=== PATIENT | male | born 1975 | race Caucasian/White ===

== ENCOUNTER 2018-01-25 14:02 | Emergency (ER) | payer OTHER ==
--- NOTE | 2018-01-25 14:41 | ER Document Report ---
ED Medical Screen (RME) - General Chief Complaint: Leg Swelling Stated Complaint: LEG SWELLING Time Seen by Provider: 01/25/18 14:32 Notes: Patient is a 42-year-old male that presents to the emergency department for chief complaint of bilateral lower extremity edema, and some shortness of breath. Patient reports that his legs been more swollen over the last month, continue to get worse over that period of time, he is on his feet 6 days a week , and has not been putting his legs up, but they are concerned something else is going on.. ROS: Other than noted above, the 12 point review of systems was reviewed with the patient and were negative, all pertinent findings are included in the HPI. PHYSICAL EXAMINATION: Vital signs reviewed. GENERAL: Well-appearing, well-nourished and in no acute distress. HEAD: Atraumatic, normocephalic. EYES: Pupils equal round extraocular movements intact, conjunctiva are normal. ENT: Nares patent NECK: Normal range of motion CV: Heart regular rate and rhythm LUNGS: No respiratory distress Musculoskeletal: Normal range of motion, bilateral lower extremity pitting edema to the proximal tibias. No erythema. NEUROLOGICAL: Normal speech PSYCH: Normal mood, normal affect. MDM: Patient seen and examined for rapid initial assessment. Vital signs reviewed. A comprehensive ED assessment and evaluation of the patient, analysis of test results and completion of the medical decision making process will be conducted by additional ED providers. *Note is created using voice recognition software and may contain spelling, syntax or grammatical errors. TRAVEL OUTSIDE OF THE [place] IN LAST 30 DAYS: No Physical Exam - Vital signs Vitals: Temp Pulse Resp BP Pulse Ox 98.6 F 89 14 142/75 H 98 01/25/18 14:17 01/25/18 14:17 01/25/18 14:17 01/25/18 14:17 01/25/18 14:17 Course - Vital Signs Vital signs: Temp Pulse Resp BP Pulse Ox 98.6 F 89 14 142/75 H 98 01/25/18 14:17 01/25/18 14:17 01/25/18 14:17 01/25/18 14:17 01/25/18 14:17
[2018-01-25 15:05] LABS: ABSOLUTE BASOPHILS # (AUTO) 0.1 10^3/uL (0.0-0.2); ABSOLUTE EOSINOPHILS # (AUTO) 0.1 10^3/uL (0.0-0.6); ABSOLUTE LYMPHOCYTES (AUTO) 2.6 10^3/uL (0.5-4.7); ABSOLUTE MONOCYTES (AUTO) 0.6 10^3/uL (0.1-1.4); BASOPHILS % (AUTO) 0.8 % (0-2); EOSINOPHILS % (AUTO) 1.6 % (0-6); HEMATOCRIT 45.6 % (37.9-51.0); LYMPHOCYTES % (AUTO) 35.1 % (13-45); MEAN CORPUSCULAR HEMOGLOBIN 32.5 pg (27.0-33.4); MEAN CORPUSCULAR HGB CONC 35.2 g/dL (32.0-36.0); MEAN CORPUSCULAR VOLUME 92 fl (80-97); MONOCYTES % (AUTO) 8.4 % (3-13); PLATELET COUNT 318 10^3/uL (150-450); RED BLOOD COUNT 4.93 10^6/uL (4.35-5.55); RED CELL DISTRIBUTION WIDTH 13.3 % (11.5-14.0); SEGMENTED NEUTROPHILS % (AUTO) 54.1 % (42-78); TOTAL CELLS COUNTED % (AUTO) 100 %; WHITE BLOOD COUNT 7.4 10^3/uL (4.0-10.5)
--- NOTE | 2018-01-25 15:05 | RADIOLOGY REPORT (SQ) ---
EXAM DESCRIPTION: CHEST 2 VIEWS COMPLETED DATE/TIME: 01/25/2018 2:54 pm REASON FOR STUDY: short of breath COMPARISON: None. EXAM PARAMETERS: NUMBER OF VIEWS: two views TECHNIQUE: Digital Frontal and Lateral radiographic views of the chest acquired. RADIATION DOSE: NA LIMITATIONS: none FINDINGS: LUNGS AND PLEURA: No opacities, masses or pneumothorax. No pleural effusion. MEDIASTINUM AND HILAR STRUCTURES: No masses or contour abnormalities. HEART AND VASCULAR STRUCTURES: Heart normal size. No evidence for failure. BONES: No acute findings. HARDWARE: None in the chest. OTHER: No other significant finding. IMPRESSION: NO ACUTE RADIOGRAPHIC FINDING IN THE CHEST. TECHNICAL DOCUMENTATION: JOB ID: [id number] [employer]- All Rights Reserved Reading location - IP/workstation name: [email or web address]
[2018-01-25 15:06] LABS: APPEARANCE,URINE CLEAR; BILIRUBIN,URINE NEGATIVE (NEGATIVE); COLOR,URINE YELLOW; GLUCOSE, URINE NEGATIVE (NEGATIVE); KETONES,URINE NEGATIVE (NEGATIVE); LEUKOCYTE ESTERASE,URINE NEGATIVE (NEGATIVE); NITRITE,URINE NEGATIVE (NEGATIVE); PROTEIN,URINE NEGATIVE (NEGATIVE); URINE SPECIFIC GRAVITY 1.016
[2018-01-25 15:26] LABS: ALANINE AMINOTRANSFERASE 54 U/L (21-72); ALBUMIN 4.5 g/dL (3.5-5.0); ALKALINE PHOSPHATASE 73 U/L (38-126); ANION GAP 12 (5-19); ASPARTATE AMINO TRANSFERASE 40 U/L (17-59); BILIRUBIN,DIRECT 0.2 mg/dL (0.0-0.4); BILIRUBIN,TOTAL 0.5 mg/dL (0.2-1.3); BLOOD UREA NITROGEN 11 mg/dL (7-20); CALCIUM 9.7 mg/dL (8.4-10.2); CARBON DIOXIDE 28 mmol/L (22-30); CHLORIDE 103 mmol/L (98-107); GLUCOSE 105 mg/dL (75-110); POTASSIUM 4.3 mmol/L (3.6-5.0); SODIUM 142.7 mmol/L (137-145); TOTAL PROTEIN 7.5 g/dL (6.3-8.2)
[2018-01-25 15:33] LABS: NT PRO BNP 28 pg/mL (<125)
[2018-01-25 15:34] LABS: TROPONIN I < 0.012 ng/mL
--- NOTE | 2018-01-25 15:36 | ER Document Report ---
ED Extremity Problem, Lower - General Mode of Arrival: Ambulatory Information source: Patient TRAVEL OUTSIDE OF THE [place] IN LAST 30 DAYS: No <BURAK MCLAIN - Last Filed: 01/25/18 23:10> <VALERIA RENEE - Last Filed: 01/25/18 23:17> - General Chief Complaint: Leg Swelling Stated Complaint: LEG SWELLING Time Seen by Provider: 01/25/18 14:32 Notes: 42-year-old male who presents to the emergency department today with complaints of bilateral leg swelling for 1 month. Patient states that his significant other was recently diagnosed with strep throat and he would like to be tested although he has no sore throat. Patient denies any history of CHF in his family at a young age. Patient denies any cough, congestion, urinary symptoms, chest pain, shortness of breath, or dark colored urine. (BURAK MCLAIN) - Related Data Allergies/Adverse Reactions: No Known Allergies Allergy (Unverified 01/25/18 14:40) Past Medical History - General Information source: Patient - Social History Smoking Status: Current Every Day Smoker Cigarette use (# per day): Yes Chew tobacco use (# tins/day): Yes Frequency of alcohol use: Rare Drug Abuse: None Lives with: Family Family History: Reviewed & Not Pertinent Patient has suicidal ideation: No Patient has homicidal ideation: No <BURAK MCLAIN - Last Filed: 01/25/18 23:10> Review of Systems - Review of Systems Constitutional: No symptoms reported EENT: denies: Nose congestion Cardiovascular: denies: Chest pain Respiratory: denies: Cough, Short of breath Gastrointestinal: No symptoms reported Genitourinary: No symptoms reported Male Genitourinary: No symptoms reported Musculoskeletal: See HPI, Leg swelling - bilateral leg swelling Skin: No symptoms reported Hematologic/Lymphatic: No symptoms reported Neurological/Psychological: No symptoms reported -: Yes All other systems reviewed and negative <BURAK MCLAIN - Last Filed: 01/25/18 23:10> Physical Exam <BURAK MCLAIN - Last Filed: 01/25/18 23:10> <VALERIA RENEE - Last Filed: 01/25/18 23:17> - Vital signs Vitals: Temp Pulse Resp BP Pulse Ox 98.6 F 89 14 142/75 H 98 01/25/18 14:17 01/25/18 14:17 01/25/18 14:17 01/25/18 14:17 01/25/18 14:17 - Notes Notes: Physical Exam: General: Alert, appears well. HEENT: Normocephalic. Atraumatic. PERRL. Extraocular movements intact. Oropharynx clear. Neck: Supple. Non-tender. Respiratory: No respiratory distress. Clear and equal breath sounds bilaterally. Cardiovascular: Regular rate and rhythm. Abdominal: Normal Inspection. Non-tender. No distension. Normal Bowel Sounds. Back: Non-tender. No deformity or step off. Extremities: Moves all four extremities. Upper extremities: Normal inspection. Normal ROM. Lower extremities: Non-pitting edema to bilateral lower extremities bilaterally. Normal ROM. Neurological: Normal cognition. AAOx4. Normal speech. Psychological: Normal affect. Normal Mood. Skin: Warm. Dry. Normal color. (BURAK MCLAIN) Course - Laboratory Result Diagrams: 01/25/18 14:50 01/25/18 14:50 <BURAK MCLAIN - Last Filed: 01/25/18 23:10> - Laboratory Result Diagrams: 01/25/18 14:50 01/25/18 14:50 - Diagnostic Test Radiology reviewed: Reports reviewed - EKG Interpretation by [facility] EKG shows normal: Sinus rhythm <VALERIA RENEE - Last Filed: 01/25/18 23:17> - Re-evaluation Re-evalutation: 01/25/18 Patient is a 42-year-old male who comes in with concern of leg swelling. Denies chest pain or trouble breathing. Patient has a history of smoking. Also with recent sore throat. No protein in urine. BNP negative. Lungs clear. No evidence for heart failure. DVT ruled out by Doppler that was negative. Strep negative. Patient appears well and is to follow-up with a primary care doctor regarding his symptoms. Understands and agrees with plan. Stable for discharge. Return if further concerns or worsening symptoms. ( VALERIA RENEE) - Vital Signs Vital signs: Temp Pulse Resp BP Pulse Ox 98.4 F 82 16 127/82 H 100 01/25/18 17:10 01/25/18 17:10 01/25/18 17:10 01/25/18 17:10 01/25/18 17:10 - Laboratory Laboratory results interpreted by me: 01/25/18 01/25/18 14:50 14:50 Creatine Kinase 234 H Urine Urobilinogen 2.0 H Discharge <BURAK MCLAIN - Last Filed: 01/25/18 23:10> <VALERIA RENEE - Last Filed: 01/25/18 23:17> - Discharge Clinical Impression: Leg swelling Condition: Stable Disposition: HOME, SELF-CARE Instructions: Edema, Peripheral ([facility]), Sore Throat ([facility]) Additional Instructions: Please follow-up with your primary care doctor this week. Scribe Attestation: 01/25/18 23:16 I personally performed the services described in the documentation, reviewed and edited the documentation which was dictated to the scribe in my presence, and it accurately records my words and actions. (VALERIA RENEE) Scribe Documentation - Scribe Written by Chi:: Chi Maldonado, 01/25/2018 1627 acting as scribe for :: Genaro <BURAK MCLAIN - Last Filed: 01/25/18 23:10>
--- NOTE | 2018-01-25 16:16 | RADIOLOGY REPORT (SQ) ---
EXAM DESCRIPTION: VENOUS BILATERAL LOWER COMPLETED DATE/TIME: 01/25/2018 4:03 pm REASON FOR STUDY: bilateral lower extremity edema COMPARISON: None. TECHNIQUE: Dynamic and static jackson scale and color images acquired of both lower extremity venous sy stems. Selected spectral images acquired with additional compression and augmentation maneuvers. Imag es stored on PACS. LIMITATIONS: None. FINDINGS: RIGHT LEG COMMON FEMORAL AND FEMORAL: Normal phasicity, compression and augmentation. No visualized echogenic m aterial on jackson scale. No defects on color images. POPLITEAL: Normal compression and augmentation. No visualized echogenic material on jackson scale. No de fects on color images. CALF VESSELS: Normal compression and augmentation. No visualized echogenic material on jackson scale. No defects on color image. GSV AND SSV: Normal compression. No visualized echogenic material on jackson scale. No defects on color images. ANY DEEP VENOUS INSUFFICIENCY: Not evaluated. ANY EVIDENCE OF POPLITEAL CYST: No. OTHER: No other significant finding. LEFT LEG COMMON FEMORAL AND FEMORAL: Normal phasicity, compression and augmentation. No visualized echogenic m aterial on jackson scale. No defects on color images. POPLITEAL: Normal compression and augmentation. No visualized echogenic material on jackson scale. No de fects on color images. CALF VESSELS: Normal compression and augmentation. No visualized echogenic material on jackson scale. No defects on color images. GSV AND SSV: Normal compression. No visualized echogenic material on jackson scale. No defects on color images. ANY DEEP VENOUS INSUFFICIENCY: Not evaluated. ANY EVIDENCE POPLITEAL CYST: No. OTHER: No other significant finding. IMPRESSION: NO EVIDENCE DVT OR SVT IN EITHER LEG. TECHNICAL DOCUMENTATION: JOB ID: [id number] [employer]- All Rights Reserved Reading location - IP/workstation name: [email or web address]
--- NOTE | 2018-01-25 17:20 | EKG REPORT ---
SEVERITY:- ABNORMAL ECG - SINUS RHYTHM PROBABLE ANTEROSEPTAL INFARCT, AGE INDETERM : Confirmed by: Alexis Kong MD 25-Jan-2018 17:20:23
[2018-01-25 17:32] VITALS: BP 127/82
[2018-01-25 17:56] LABS: A TYPE INFLUENZA AG NEGATIVE (NEGATIVE); B INFLUENZA AG NEGATIVE (NEGATIVE)
== END 2018-01-25 18:35 | disposition home or self-care (01) ==
LOC: ER 14:02
DX: M79.89 Other specified soft tissue disorders (principal); F17.210 Nicotine dependence, cigarettes, uncomplicated
CPT/HCPCS: 36415; 71046; 80053; 81001; 82550; 83880; 84484; 85025; 87070; 87804; 87880; 93005; 93010; 93970; 99284

== ENCOUNTER 2019-12-19 21:41 | Emergency (ER) | payer OTHER ==
[2019-12-19] MEDS ORDERED: OXYCODONE-ACETAMINOPHEN 5-325 MG TABLET PO ONE (22:04)
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
[2019-12-20] MEDS ORDERED: IBUPROFEN 800 MG TABLET PO ONE (00:07)
[2019-12-20 01:50] VITALS: BP 140/88
== END 2019-12-20 00:45 | disposition home or self-care (01) ==
LOC: ER 21:41
PROC: 2W3QX1Z Immobilization of Right Lower Leg using Splint (ICD-10-PCS; principal; 2019-12-19)
DX: S82.54XA Nondisplaced fracture of medial malleolus of right tibia, initial encounter for closed fracture (principal); M79.671 Pain in right foot; M25.571 Pain in right ankle and joints of right foot; M79.89 Other specified soft tissue disorders; V03.00XA Pedestrian on foot injured in collision with car, pick-up truck or van in nontraffic accident, initial encounter; F17.210 Nicotine dependence, cigarettes, uncomplicated
CPT/HCPCS: 99283